=== PATIENT | male | born 1980 | race Caucasian/White ===

== ENCOUNTER 2018-04-30 16:27 | Emergency (ER) | payer OTHER, SELFPAY ==
[2018-04-30 16:34] VITALS: TEMP 36.4; BMI 27.8
[2018-04-30 16:40] VITALS: BP 142/91; PULSE 82; RESP 17; O2SAT 100
--- NOTE | 2018-04-30 16:42 | ED.CHESTPAIN ---
HPI - Chest Pain <ELTON Bunn - Last Filed: 04/30/18 22:22> General Chief Complaint: Chest Pain Stated Complaint: CP and SOB Time Seen by Provider: 04/30/18 16:42 Source: patient Mode of arrival: ambulatory Limitations: no limitations History of Present Illness HPI narrative: Healthy 37-year-old male that is a nonsmoker here for complaint of pain to his axillary area and to the upper lateral ribcage area that started approximately about a week ago. He reports that he had. Today were a pain was increased. He states that he was walking with his child earlier today when the pain started. He has recently moved to the area and reports moving heavy objects as part of the move recently. He denies any trauma to the painful areas. He states during period where he had increased pain he felt like he had shortness of breath that lasted for short period. This resolved. He also reports having cold-like symptoms with cough during the same timeframe. No nausea vomiting. No fevers or chills. No diaphoresis. He states he has increased pain with movement of the upper extremities. MD complaint: chest pain Review of Systems <ELTON Bunn - Last Filed: 04/30/18 22:22> Constitutional Denies chills, Denies fatigue, Denies fever(s), Denies lethargy and Denies weakness Eyes Denies change in vision, Denies eye discharge, Denies irritation and Denies loss of vision ENT Ears, Nose, Mouth, and Throat: Denies change in voice, Denies neck pain and Denies sore throat Cardiovascular Denies dyspnea and Denies dyspnea on exertion Comments: Axillary pain bilaterally and upper lateral ribcage pain bilaterally Respiratory Reports cough, Denies dyspnea, Denies dyspnea on exertion and Denies wheezing Gastrointestinal Gastrointestinal: Denies abdominal pain, Denies change in bowel habits, Denies diarrhea, Denies nausea and Denies vomiting Genitourinary Denies hematuria, Denies flank pain, Denies urinary incontinence and Denies urinary urgency Musculoskeletal Denies neck pain Integumentary/Breasts Denies pruritus, Denies erythema, Denies rash and Denies wounds Neurologic Denies confusion, Denies loss of vision and Denies weakness Psychiatric Denies anxiety, Denies confusion, Denies depression, Denies homicidal ideation and Denies suicidal ideation Endocrine Denies fatigue and Denies flushing Hematologic/Lymphatic Denies easy bruising Allergic/Immunologic Denies wheezing Exam <ELTON Bunn - Last Filed: 04/30/18 22:22> Initial Vital Signs Initial Vital Signs: Vital Signs Temperature 97.6 F 04/30/18 16:34 Const General: cooperative and well developed Nutritional Appearance: well nourished Orientation: alert, awake, oriented x3 and not confused HENMT Mouth: oral mucosae normal and moist mucous membranes Eyes Conjunctivae: conjunctivae normal Sclera: sclerae normal Pupils: PERRL EOM: EOM intact bilaterally Chest Chest: normal inspection of the chest Resp Effort & Inspection: normal respiratory effort, able to speak in complete sentences, no respiratory distress and no use of accessory muscles Auscultation: clear to auscultation bilaterally, no rales, no rhonchi and no wheezes Cardio Rate: regular rate Rhythm: regular rhythm Heart Sounds: no click, no gallops, no murmurs and no rubs Pulses: normal peripheral pulses Skin General: no rashes or lesions noted, No jaundice and No petechiae Neuro General: alert, oriented x3, gait normal and no focal motor deficits Speech: speech normal Extrem General: full ROM, no clubbing, cyanosis or edema, no pedal edema and no calf tenderness Other: Bilateral axillary area with no signs of trauma. No swelling. No ecchymosis. No adenopathy appreciated. No deformities. Distal sensation is intact bilaterally. Distal pulses are intact bilaterally. Full range of motion of both upper extremities. <Kaela Ortiz MD - Last Filed: 05/01/18 14:12> Initial Vital Signs Initial Vital Signs: Vital Signs Temperature 97.6 F 04/30/18 16:34 Scores <ELTON Bunn - Last Filed: 04/30/18 22:22> HEART Score Heart Score history: Slightly Suspicious Heart Score EKG: Normal Heart Score Age: < 45 years old Heart Score risk factors: No known risk factors Heart Score troponin: < or = to normal limit Heart Score Total: 0 Course <ELTON Bunn - Last Filed: 04/30/18 22:22> Orders Ordered: ED Orders 04/30/18 16:55 XR chest 1V Stat 04/30/18 17:00 Complete Blood Count AUTO DIFF Stat Comprehensive Metabolic Panel Stat D Dimer Stat Troponin & CK Cardiac Panel Stat Vital Signs - 8 hr 04/30/18 16:34 04/30/18 16:40 04/30/18 17:00 Temperature 97.6 F Pulse Rate 82 50 L Respiratory Rate 17 17 Blood Pressure [Right Arm] 142/91 H 131/64 Pulse Oximetry 100 97 04/30/18 17:30 04/30/18 18:00 04/30/18 18:31 Temperature Pulse Rate 52 L 58 L 51 L Respiratory Rate 17 16 19 Blood Pressure [Right Arm] 131/64 132/76 137/74 Pulse Oximetry 97 99 <Kaela Ortiz MD - Last Filed: 05/01/18 14:12> Orders Ordered: ED Orders 04/30/18 16:55 XR chest 1V Stat 04/30/18 17:00 Complete Blood Count AUTO DIFF Stat Comprehensive Metabolic Panel Stat D Dimer Stat Troponin & CK Cardiac Panel Stat Vital Signs - 8 hr 04/30/18 16:34 04/30/18 16:40 04/30/18 17:00 Temperature 97.6 F Pulse Rate 82 50 L Respiratory Rate 17 17 Blood Pressure [Right Arm] 142/91 H 131/64 Pulse Oximetry 100 97 04/30/18 17:30 04/30/18 18:00 04/30/18 18:31 Temperature Pulse Rate 52 L 58 L 51 L Respiratory Rate 17 16 19 Blood Pressure [Right Arm] 131/64 132/76 137/74 Pulse Oximetry 97 99 MDM - Chest Pain <ELTON Bunn - Last Filed: 04/30/18 22:22> Lab Data Result diagrams: 04/30/18 17:00 04/30/18 17:00 Lab Results 04/30/18 04/30/18 04/30/18 Range/Units 17:00 17:00 17:00 WBC 7.5 (4.5-11.0) X10^3/uL RBC 4.84 (4.5-5.9) X10^6/uL Hgb 14.9 (13.5-17.5) g/dL Hct 43.8 (41-53) % MCV 90.4 (80-100) fL MCH 30.8 (26-34) PG MCHC 34.1 (30-36) % RDW 12.5 (11.6-14.8) % Plt Count 267 (150-400) X10^3/uL Neut % (Auto) 54.0 (50-75) % Lymph % (Auto) 32.4 (25-40) % Bath % (Auto) 8.2 (3-14) % Eos % (Auto) 4.8 H (2-4) % Baso % (Auto) 0.6 (0-2) % Neut # (Auto) 4100 (0819-5208) /uL D-Dimer < 200 (<230) ng/mL Sodium 141 (137-145) mmol/L Potassium 3.9 (3.4-5.1) mmol/L Chloride 101 (98-107) mmol/L Carbon Dioxide 29 (22-32) mmol/L BUN 17 (9-20) mg/dL Creatinine 1.10 (0.66-1.25) mg/dL Estimated GFR > 60.0 (>60) mL/min BUN/Creatinine Ratio 15.5 (6-22) Glucose 98 (70-100) mg/dL Calcium 9.2 (8.4-10.2) mg/dL Total Bilirubin 0.2 (0.2-1.3) mg/dL AST 21 (17-59) IU/L ALT 21 (21-72) IU/L Alkaline Phosphatase 53 (38-126) U/L Total Creatine Kinase 64 (55-170) U/L CK-MB (CK-2) TNP CK-MB (CK-2) Rel Index TNP Troponin I < 0.012 (0.01-0.034) ng/mL Total Protein 7.8 (6.3-8.2) g/dL Albumin 4.6 (3.5-5.0) g/dL Globulin 3.2 (1.7-4.1) g/dL Albumin/Globulin Ratio 1.4 (1.0-2.8) Imaging Data Chest x-ray: Radiologist's impression: [address] [address] XRay Report Signed Patient: Tho Lamb MR#: [id number] : 1980 Acct:[id number] Age/Sex: 37 / M Date of Service: 04/30/18 Loc: ED Accession Number: [id number] Procedure: XR chest 1V Ordering Provider: Marvin Holt PROCEDURE: XR CHEST 1V INDICATIONS: Chest pain TECHNIQUE: One view of the chest was acquired. COMPARISON: None. FINDINGS: Surgical changes and devices: None. Lungs and pleura: No pleural effusions or pneumothorax. Lungs are clear. Mediastinum: Mediastinal contours appear normal. Heart size is normal. Bones and chest wall: No suspicious bony lesions. Overlying soft tissues appear unremarkable. IMPRESSION: 1. No acute cardiopulmonary disease. Dictated by: Toi Nelson M.D. on 04/30/2018 at 17:38 Approved by: Toi Nelson M.D. on 04/30/2018 at 17:38 ECG Data Interpretation: EKG shows a sinus bradycardia with no ST elevation or depression. No ectopy. Ventricular rate of 56. Pr interval of 168. QRS duration 90. QTC of 410. MDM Narrative Medical decision making narrative: EKG shows sinus bradycardia with no ST elevation or depression. No ectopy. CBC and Chem panel were obtained were unremarkable. Chest x-ray was negative for any acute findings. Cardiac enzymes were negative. D-dimer was normal. Signs and symptoms presents as muscle skeletal pain to the chest wall axillary area. [id number] Tylenol or Motrin as needed for any discomfort. Rest area. Follow up with primary care provider later this week. For any worsening symptoms return to the emergency room. <Kaela Ortiz MD - Last Filed: 05/01/18 14:12> Lab Data Lab Results 04/30/18 04/30/18 04/30/18 Range/Units 17:00 17:00 17:00 WBC 7.5 (4.5-11.0) X10^3/uL RBC 4.84 (4.5-5.9) X10^6/uL Hgb 14.9 (13.5-17.5) g/dL Hct 43.8 (41-53) % MCV 90.4 (80-100) fL MCH 30.8 (26-34) PG MCHC 34.1 (30-36) % RDW 12.5 (11.6-14.8) % Plt Count 267 (150-400) X10^3/uL Neut % (Auto) 54.0 (50-75) % Lymph % (Auto) 32.4 (25-40) % Bath % (Auto) 8.2 (3-14) % Eos % (Auto) 4.8 H (2-4) % Baso % (Auto) 0.6 (0-2) % Neut # (Auto) 4100 (1942-9907) /uL D-Dimer < 200 (<230) ng/mL Sodium 141 (137-145) mmol/L Potassium 3.9 (3.4-5.1) mmol/L Chloride 101 (98-107) mmol/L Carbon Dioxide 29 (22-32) mmol/L BUN 17 (9-20) mg/dL Creatinine 1.10 (0.66-1.25) mg/dL Estimated GFR > 60.0 (>60) mL/min BUN/Creatinine Ratio 15.5 (6-22) Glucose 98 (70-100) mg/dL Calcium 9.2 (8.4-10.2) mg/dL Total Bilirubin 0.2 (0.2-1.3) mg/dL AST 21 (17-59) IU/L ALT 21 (21-72) IU/L Alkaline Phosphatase 53 (38-126) U/L Total Creatine Kinase 64 (55-170) U/L CK-MB (CK-2) TNP CK-MB (CK-2) Rel Index TNP Troponin I < 0.012 (0.01-0.034) ng/mL Total Protein 7.8 (6.3-8.2) g/dL Albumin 4.6 (3.5-5.0) g/dL Globulin 3.2 (1.7-4.1) g/dL Albumin/Globulin Ratio 1.4 (1.0-2.8) Discharge Plan Departure Patient Disposition: Home Clinical Impression: Acute chest wall pain Discharge Date/Time: 04/30/18 18:57 Interventions: ED Discharge Assessment Last Done: 04/30/18 18:57 Instructions: DI for Atypical Chest Pain, DI for Muscle Strain Activity Restrictions/Additional Instructions: Laboratory results, chest x-ray and EKG today were unremarkable. Signs and symptoms presents as muscle strain to the painful areas. Use [id number] Tylenol or Motrin as needed for any discomfort. Follow up with primary care provider later this week for re-evaluation. Rest area. Gentle range of motion painful areas to keep muscles loose. For any worsening symptoms return to the emergency room. Referrals: [facility] [Provider Group]
--- NOTE | 2018-04-30 16:55 | DI.RAD.S_ITS ---
PROCEDURE: XR CHEST 1V INDICATIONS: Chest pain TECHNIQUE: One view of the chest was acquired. COMPARISON: None. FINDINGS: Surgical changes and devices: None. Lungs and pleura: No pleural effusions or pneumothorax. Lungs are clear. Mediastinum: Mediastinal contours appear normal. Heart size is normal. Bones and chest wall: No suspicious bony lesions. Overlying soft tissues appear unremarkable. IMPRESSION: 1. No acute cardiopulmonary disease. Dictated by: Toi Nelson M.D. on 04/30/2018 at 17:38 Approved by: Toi Nelson M.D. on 04/30/2018 at 17:38
[2018-04-30 17:00] VITALS: BP 131/64; PULSE 50; RESP 17; O2SAT 97
[2018-04-30 17:08] LABS: Add Manual Diff / Slide Review NO; Basophils Percent Auto 0.6 % (0-2); Eosinophils Percent Auto 4.8 % (2-4); Hematocrit 43.8 % (41-53); Hemoglobin 14.9 g/dL (13.5-17.5); Lymphocytes Percent Auto 32.4 % (25-40); Mean Corpuscular HGB Conc 34.1 % (30-36); Mean Corpuscular Hemoglobin 30.8 PG (26-34); Mean Corpuscular Volume 90.4 fL (80-100); Monocytes Percent Auto 8.2 % (3-14); Neutrophils Absolute Auto 4100 /uL (1500-7000); Platelet Count 267 X10^3/uL (150-400); Red Blood Cell Count 4.84 X10^6/uL (4.5-5.9); Red Cell Distribution Width 12.5 % (11.6-14.8); White Blood Cell Count 7.5 X10^3/uL (4.5-11.0)
[2018-04-30 17:16] LABS: Alanine Aminotransferase 21 IU/L (21-72); Albumin 4.6 g/dL (3.5-5.0); Albumin Globulin Ratio 1.4 (1.0-2.8); Alkaline Phosphatase 53 U/L (38-126); Aspartate Aminotransferase 21 IU/L (17-59); BUN Creatinine Ratio 15.5 (6-22); Bilirubin Total 0.2 mg/dL (0.2-1.3); Blood Urea Nitrogen 17 mg/dL (9-20); Calcium 9.2 mg/dL (8.4-10.2); Carbon Dioxide 29 mmol/L (22-32); Chloride 101 mmol/L (98-107); Creatine Kinase 64 U/L (55-170); D Dimer < 200 ng/mL (<230); Estimated Glomerular Filt Rate > 60.0 mL/min (>60); Globulin 3.2 g/dL (1.7-4.1); Glucose 98 mg/dL (70-100); HEMOLYSIS < 15 (0-50); Potassium 3.9 mmol/L (3.4-5.1); Sodium 141 mmol/L (137-145); Total Protein 7.8 g/dL (6.3-8.2)
[2018-04-30 17:28] LABS: Troponin I < 0.012 ng/mL (0.01-0.034)
[2018-04-30 17:30] VITALS: BP 131/64; PULSE 52; RESP 17; O2SAT 97
[2018-04-30 18:00] VITALS: BP 132/76; PULSE 58; RESP 16; O2SAT 99
[2018-04-30 18:31] VITALS: BP 137/74; PULSE 51; RESP 19
== END 2018-04-30 18:57 | disposition home or self-care (01) ==
PROVIDERS: Emergency Provider Nurse Practitioner Family
DX: R07.89 Other chest pain (principal)
CPT/HCPCS: 36591; 71045; 80053; 82550; 84484; 85025; 85379; 93005; 99283; 99285